=== PATIENT | female | born 1975 | race Caucasian/White ===

== ENCOUNTER 2021-06-10 00:50 | Emergency (ER) | payer MEDICAID ==
[~2021-06-10] VITALS: Ht 157.5 cm; Wt 65.3 kg
[2021-06-10 01:05] VITALS: BP 138/66
--- NOTE | 2021-06-10 01:13 | NUR ---
[facility] TO LOBBY
--- NOTE | 2021-06-10 01:33 | NUR ---
PT TAKEN TO BED 5
--- NOTE | 2021-06-10 01:43 | NUR ---
Dr. Chan examining patient.
[2021-06-10] MEDS ORDERED: KETOROLAC 60 MG/2 ML VIAL IM ONE (01:45)
[2021-06-10] MEDS ORDERED: CIPR500T4 PO (01:53)
[2021-06-10] MEDS ORDERED: ONDA8TAB87 PO (01:53)
[2021-06-10] MEDS ORDERED: IBUP-2213 PO (01:53)
[2021-06-10 02:07] VITALS: BP 113/70
--- NOTE | 2021-06-10 02:07 | NUR ---
Patient discharged with v/s stable. Written and verbal after care instructions given and explained. Patient alert, oriented and verbalized understanding of instructions. Ambulatory with steady gait. All questions addressed prior to discharge. ID band removed. Patient advised to follow up with PMD. Rx of CIPRO, IBUPROFEN, ZOFRAN given. Patient educated on indication of medication including possible reaction and side effects. Opportunity to ask questions provided and answered.
== END 2021-06-10 02:07 | disposition home or self-care (01) ==
LOC: MED 00:50
DX: N39.0 Urinary tract infection, site not specified (principal); R07.89 Other chest pain; R11.2 Nausea with vomiting, unspecified
CPT/HCPCS: 81002; 81025; 93005; 96372; 99283; J1885

== ENCOUNTER 2022-09-26 06:16 | Emergency (ER) | payer MEDICAID ==
[~2022-09-26] VITALS: Ht 160 cm; Wt 67.1 kg
[~2022-09-26 06:16] MED LIST: CIPR500T4 PO; IBUP-2213 PO; ONDA8TAB87 PO
[2022-09-26 06:23] VITALS: BP 103/70
--- NOTE | 2022-09-26 06:26 | NUR ---
TO BED AMBULATORY
[2022-09-26 06:50] LABS: BASOPHILS % (AUTO) 0.8 % (0.0-2.0); EOSINOPHILS # (AUTO) 0.2 K/uL (0-0.4); EOSINOPHILS % (AUTO) 4.4 % (0.0-4.0); HEMATOCRIT 43.7 % (36-48); HEMOGLOBIN 14.6 g/dL (12.0-16.0); LYMPHOCYTES # (AUTO) 1.6 K/uL (2.5-16.5); LYMPHOCYTES % (AUTO) 31.5 % (20.5-51.1); MEAN CORPUSCULAR HEMOGLOBIN 30 pg (27-31); MEAN CORPUSCULAR HGB CONC 34 g/dL (33-37); MEAN CORPUSCULAR VOLUME 88.7 fL (80-94); MONOCYTES # (AUTO) 0.6 K/uL (0.8-1.0); MONOCYTES % (AUTO) 10.9 % (1.7-9.3); NEUTROPHILS # (AUTO) 2.7 K/uL (1.8-7.7); NEUTROPHILS % (AUTO) 52.4 % (42.2-75.2); PLATELET COUNT (AUTO) 313 K/uL (140-450); RED BLOOD CELL COUNT(AUTO) 4.92 MIL/uL (4.20-5.40); RED CELL DISTRIBUTION WIDTH 14.2 % (11.6-13.7); WHITE BLOOD COUNT (AUTO) 5.2 K/uL (4.8-10.8)
[2022-09-26] MEDS ORDERED: LIDOCAINE 5% 1 EA PATCH TP ONE (06:50)
[2022-09-26] MEDS ORDERED: KETOROLAC 15 MG/ML VIAL IM ONE (06:50)
--- NOTE | 2022-09-26 07:20 | NUR ---
Report recieved from TIANNA Camp for transfer of care.
[2022-09-26 07:22] LABS: ALBUMIN 3.4 g/dL (3.4-5.0); ANION GAP 8.4 (8-16); ASPARTATE AMINOTRANSFERASE 21 U/L (15-37); CARBON DIOXIDE 29.9 mmol/L (21-32); CHLORIDE 104 mmol/L (98-107); CREATININE 0.7 mg/dL (0.6-1.3); GFR ARICAN-AMERICAN 114 mL/min (>90); GLUCOSE 110 mg/dL (74-106); POTASSIUM 4.3 mmol/L (3.5-5.1); SODIUM SERUM 138 mmol/L (136-145); TOTAL BILIRUBIN 0.2 mg/dL (0.0-1.0); UREA NITROGEN, BLOOD 19 mg/dL (7-18)
--- NOTE | 2022-09-26 08:10 | NUR ---
Patient ambulated to restroom with steady gait.
--- NOTE | 2022-09-26 10:11 | NUR ---
Patient ambulated to restroom as needed.
[2022-09-26] MEDS ORDERED: LID5T TP (10:51)
[2022-09-26] MEDS ORDERED: DICL100G5 TP (10:51)
[2022-09-26 11:06] VITALS: BP 123/62
--- NOTE | 2022-09-26 11:06 | NUR ---
The patient's care was reviewed and supervised by Delon Arroyo RN.
--- NOTE | 2022-09-26 11:06 | NUR ---
Patient discharged with v/s stable. Written and verbal after care instructions given. Patient alert, oriented and verbalized understanding of instructions. Ambulatory with steady gait. All questions addressed prior to discharge. ID band removed. Patient advised to follow up with PMD. Rx of Lidoderm and Dicofenac Sodium given. Opportunity to ask questions provided and answered.
== END 2022-09-26 11:06 | disposition home or self-care (01) ==
LOC: MED 06:16
DX: R07.9 Chest pain, unspecified (principal)
CPT/HCPCS: 36415; 71045; 80053; 81025; 84484; 85025; 93005; 96372; 99285; J1885

== ENCOUNTER 2024-05-01 23:50 | Emergency (ER) | payer MEDICAID, OTHER ==
[~2024-05-01] VITALS: Ht 167.6 cm; Wt 65.8 kg
[~2024-05-01 23:50] MED LIST changes: +DICL100G32 TP; +LID5T TP
[2024-05-02 00:05] VITALS: BP 104/67; PULSE 53; RESP 18; TEMP 98; O2SAT 98
[2024-05-02] MEDS: KETOROLAC 30 MG/ML VIAL IM ONE (01:43)
[2024-05-02] MEDS ORDERED: LID5T TP (01:46)
[2024-05-02] MEDS ORDERED: IBUP-2213 PO (01:46)
[2024-05-02 01:55] VITALS: BP 104/67; PULSE 53; RESP 18; TEMP 98; O2SAT 98
== END 2024-05-02 01:55 | disposition home or self-care (01) ==
LOC: MED 23:50
DX: S43.402A Unspecified sprain of left shoulder joint, initial encounter (principal); B34.9 Viral infection, unspecified; R53.81 Other malaise; Z20.822 Contact with and (suspected) exposure to COVID-19; Z79.1 Long term (current) use of non-steroidal anti-inflammatories (NSAID); Z79.2 Long term (current) use of antibiotics; Z79.899 Other long term (current) drug therapy; X58.XXXA Exposure to other specified factors, initial encounter; Y93.89 Activity, other specified; Y92.89 Other specified places as the place of occurrence of the external cause; Y99.8 Other external cause status
CPT/HCPCS: 87426; 96372; 99283; J1885